=== PATIENT | female | born 1970 | race American Indian/Alaskan Native ===

== ENCOUNTER 2017-05-08 15:00 | Emergency (ER) | payer SELFPAY ==
[2017-05-08 15:03] VITALS: BP 153/102
--- NOTE | 2017-05-08 15:43 | Emergency Department Report ---
ED Back Pain/Injury HPI - General Chief Complaint: Back Pain/Injury Stated Complaint: BACK PAIN Source: patient Limitations: No Limitations - History of Present Illness Initial Comments: Patient is a 47-year-old Italian female who is presenting with 5 days of progressively worsening right lower back pain. 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 This is progressively worsened and is now a 8 out of 10 in severity there is some radiation to the right buttock. Patient denies any urinary or fecal incontinence or urinary retention no fevers chills nausea vomiting at this time. Patient is walking with a limp. Severity scale (0 -10): 8 Quality: aching - Related Data Previous Rx's Medication Instructions Recorded Last Taken Type Docusate Sodium [Colace] 100 mg PO BID #30 capsule 05/08/17 Unknown Rx HYDROcodone/APAP 5-325 [[place] 1 each PO Q6HR PRN #12 tablet 05/08/17 Unknown Rx 5/325] Ibuprofen [Motrin] 800 mg PO Q8HR PRN #30 tablet 05/08/17 Unknown Rx methOCARBAMOL [Robaxin TAB] 500 mg PO Q6H PRN #20 tablet 05/08/17 Unknown Rx Allergies Allergy/AdvReac Type Severity Reaction Status Date / Time No Known Allergies Allergy Unverified 05/08/17 15:01 ED Review of Systems ROS: Stated complaint: BACK PAIN Other details as noted in HPI Comment: All other systems reviewed and negative ED Back Pain Physical Exam - Exam General: Vital signs noted. No distress. Alert and acting appropriately. limits.GENERAL: No acute distress at this time. LUNGS: [Clear to auscultation] HEART: [S1-S2 no murmurs gallops rubs] ABDOMEN: [Soft and nontender] NEUROLOGICAL: [Within normal limits] PSYCH: [Patient is calm] Back/Abdomen: Yes Perilumbar Tenderness (the right side the patient has tenderness in the past. Lumbar area), No Abdominal Tenderness, No Perithoracic Tenderness, No Sacroiliac Tenderness, No Flank Tenderness, No Straight Leg Raise Pain Neuro: Yes Normal Sensation, Yes Normal DTR's, Yes Normal Gait, No Motor Weakness ED Course Vital Signs 05/08/17 15:01 Temperature 98.4 F Pulse Rate 106 H Respiratory 18 Rate Blood Pressure 153/102 O2 Sat by Pulse 99 Oximetry ED Medical Decision Making - Medical Decision Making Patient was given information about a lumbar strain and will be discharged home with follow Ortho Evra if needed. Critical care attestation.: If time is entered above; I have spent that time in minutes in the direct care of this critically ill patient, excluding procedure time. ED Disposition Clinical Impression: Lumbar strain Qualifiers: Encounter type: initial encounter Qualified Code(s): S39.012A - Strain of muscle, fascia and tendon of lower back, initial encounter Disposition: TO HOME OR SELFCARE Is pt being admited?: No Does the pt Need Aspirin: No Condition: Stable Instructions: Muscle Strain (ED) Prescriptions: Docusate Sodium [Colace] 100 mg PO BID #30 capsule HYDROcodone/APAP 5-325 [[place] 5/325] 1 each PO Q6HR PRN #12 tablet PRN Reason: Pain Ibuprofen [Motrin] 800 mg PO Q8HR PRN #30 tablet PRN Reason: Pain methOCARBAMOL [Robaxin TAB] 500 mg PO Q6H PRN #20 tablet PRN Reason: Spasms Referrals: PRIMARY CARE,MD [Primary Care Provider] - 3-5 Days
[2017-05-08] MEDS ORDERED: MOTRIN PO ONE (15:47)
[2017-05-08] MEDS ORDERED: NORCO 7.5/325 PO ONE (15:47)
== END 2017-05-08 16:04 | disposition home or self-care (01) ==
LOC: ED 15:00
DX: S39.012A Strain of muscle, fascia and tendon of lower back, initial encounter (principal); X58.XXXA Exposure to other specified factors, initial encounter; Y93.89 Activity, other specified; Y99.8 Other external cause status; Y92.89 Other specified places as the place of occurrence of the external cause
CPT/HCPCS: 99282